=== PATIENT | male | born 1975 | race Two or more races ===

== ENCOUNTER 2020-09-23 13:15 | Inpatient (IN) | payer OTHER ==
[2020-09-23 14:43] VITALS: BMI 28.8
[2020-09-23] MEDS ORDERED: P-EPHED 60MG/TRIPROLIDI 2.5MG TABLET PO PRN (20:33)
[2020-09-23] MEDS ORDERED: guaiFENesin 200 MG/10 ML 10 ML UNIT-DOSE CUPS PO PRN (20:33)
[2020-09-23] MEDS ORDERED: LOPERAMIDE HCL 2 MG CAPSULE PO PRN (20:33)
[2020-09-23] MEDS ORDERED: MAGNESIUM CITRATE 300 ML BOTTLE PO PRN (20:33)
[2020-09-23] MEDS ORDERED: ACETAMINOPHEN 325 MG TABLET (FP) PO PRN (20:33)
[2020-09-23] MEDS ORDERED: MAGNESIUM HYDROX 2400MG/30ML ORAL SUSPENSION 30 ML CUP PO PRN (20:33)
[2020-09-23] MEDS ORDERED: MAG HYDROX/AL HYDROX/SIMETH 30 ML UNIT-DOSE CUP PO PRN (20:33)
[2020-09-23] MEDS: MELATONIN 5 MG TABLETS PO SCH (22:03)
[2020-09-23] MEDS: THIAMINE HCL 100 MG TABLET (FP) PO SCH (22:03)
[2020-09-23] MEDS ORDERED: TUBERCULIN PPD 5 TU/0.1ML VIAL ID ONE (22:05)
[2020-09-24] MEDS ORDERED: METHADONE HCL 40 MG DISPERSABLE TABLET ONE (07:54)
[2020-09-24] MEDS ORDERED: METHADONE HCL 10 MG TABLET ONE (07:54)
[2020-09-24] MEDS ORDERED: METHADONE 120 MG, METHADONE 10 MG PO ONE (08:00)
[2020-09-24] MEDS ORDERED: METHADONE HCL 10 MG TABLET PO ONE ×2 (10:00)
[2020-09-24] MEDS: PRENATAL VITAMINS W/ FOLIC ACID TABLET (FP) PO SCH (11:10)
[2020-09-24] MEDS: SERTRALINE HCL 50 MG TABLET (FP) PO SCH (12:01)
[2020-09-24] MEDS: NICOTINE POLACRILEX 2 MG GUM BC PRN (12:02)
[2020-09-24] MEDS ORDERED: MASKS NR ONE ×2 (16:25→17:15)
[2020-09-24 16:29] LABS: HEMATOCRIT 41.9 % (35.4-49); MCH 27.1 pg (25.7-33.7); MCHC 33.3 g/dl (32.0-35.9); MEAN CELL VOLUME 81.3 fl (80-96); MEAN PLT VOLUME 10.3 fl (7.5-11.1); PLATELET COUNT 181 K/MM3 (134-434); RBC 5.15 M/mm3 (4.00-5.60); RDW 15.3 % (11.9-15.9); WHITE BLOOD COUNT 6.4 K/mm3 (4.0-10.0)
[2020-09-24 16:40] LABS: ALBUMIN 4.3 g/dl (3.4-5.0); BLOOD UREA NITROGEN 18.2 mg/dL (7-18); CALCIUM 9.5 mg/dL (8.5-10.1)
[2020-09-24 16:45] LABS: BILIRUBIN,TOTAL 0.4 mg/dL (0.2-1); TOT PROT 7.7 g/dl (6.4-8.2)
[2020-09-24] MEDS: THIAMINE HCL 100 MG TABLET (FP) PO SCH (21:06)
[2020-09-24] MEDS: MELATONIN 5 MG TABLETS PO SCH (21:06)
[2020-09-25] MEDS ORDERED: METHADONE HCL 10 MG TABLET PO SCH ×2 (06:00)
[2020-09-25] MEDS ORDERED: METHADONE HCL 10 MG TABLET ONE (06:06)
[2020-09-25] MEDS ORDERED: METHADONE HCL 40 MG DISPERSABLE TABLET ONE (06:06)
[2020-09-25] MEDS: METHADONE 120 MG, METHADONE 10 MG PO SCH (06:07)
[2020-09-25] MEDS: PRENATAL VITAMINS W/ FOLIC ACID TABLET (FP) PO SCH (10:22)
[2020-09-25] MEDS: SERTRALINE HCL 50 MG TABLET (FP) PO SCH (10:24)
[2020-09-25] MEDS: NICOTINE POLACRILEX 2 MG GUM BC PRN (10:24)
[2020-09-25] MEDS: ARIPiprazole 10 MG TABLET PO SCH (10:24)
[2020-09-25 11:28] LABS: URINE APPEARANCE CLEAR; URINE BILIRUBIN NEGATIVE (NEGATIVE); URINE COLOR YELLOW; URINE GLUCOSE (UA) NEGATIVE (NEGATIVE); URINE KETONE NEGATIVE (NEGATIVE); URINE LEUK ESTERASE NEGATIVE (NEGATIVE); URINE NITRITE NEGATIVE (NEGATIVE); URINE PROTEIN NEGATIVE (NEGATIVE)
[2020-09-25] MEDS: MELATONIN 5 MG TABLETS PO SCH (21:38)
[2020-09-25] MEDS: THIAMINE HCL 100 MG TABLET (FP) PO SCH (21:40)
[2020-09-26] MEDS: IBUPROFEN 400 MG TABLET (FP) PO PRN (02:57)
[2020-09-26] MEDS ORDERED: METHADONE HCL 40 MG DISPERSABLE TABLET ONE (04:31)
[2020-09-26] MEDS ORDERED: METHADONE HCL 10 MG TABLET ONE (04:31)
[2020-09-26] MEDS: METHADONE 120 MG, METHADONE 10 MG PO SCH (06:04)
[2020-09-26] MEDS: SERTRALINE HCL 50 MG TABLET (FP) PO SCH (10:30)
[2020-09-26] MEDS: PRENATAL VITAMINS W/ FOLIC ACID TABLET (FP) PO SCH (10:30)
[2020-09-26] MEDS: ARIPiprazole 10 MG TABLET PO SCH (10:31)
[2020-09-26] MEDS: THIAMINE HCL 100 MG TABLET (FP) PO SCH (21:14)
[2020-09-26] MEDS: MELATONIN 5 MG TABLETS PO SCH (21:14)
[2020-09-27] MEDS ORDERED: METHADONE HCL 40 MG DISPERSABLE TABLET ONE (04:14)
[2020-09-27] MEDS ORDERED: METHADONE HCL 10 MG TABLET ONE (04:14)
[2020-09-27] MEDS: METHADONE 120 MG, METHADONE 10 MG PO SCH (06:15)
[2020-09-27] MEDS: SERTRALINE HCL 50 MG TABLET (FP) PO SCH (10:04)
[2020-09-27] MEDS: ARIPiprazole 10 MG TABLET PO SCH (10:04)
[2020-09-27] MEDS: PRENATAL VITAMINS W/ FOLIC ACID TABLET (FP) PO SCH (10:05)
[2020-09-27 11:07] LABS: SARS-CoV-2 NAA Not Detected (Not Detected)
[2020-09-27] MEDS ORDERED: MASKS NR ONE (16:22)
[2020-09-27] MEDS: MELATONIN 5 MG TABLETS PO SCH (21:38)
[2020-09-27] MEDS: THIAMINE HCL 100 MG TABLET (FP) PO SCH (21:38)
[2020-09-28] MEDS ORDERED: METHADONE HCL 40 MG DISPERSABLE TABLET ONE (03:11)
[2020-09-28] MEDS ORDERED: METHADONE HCL 10 MG TABLET ONE (03:11)
[2020-09-28] MEDS: METHADONE 120 MG, METHADONE 10 MG PO SCH (06:16)
[2020-09-28] MEDS: PRENATAL VITAMINS W/ FOLIC ACID TABLET (FP) PO SCH (10:23)
[2020-09-28] MEDS: ARIPiprazole 10 MG TABLET PO SCH (10:23)
[2020-09-28] MEDS: SERTRALINE HCL 50 MG TABLET (FP) PO SCH (10:23)
[2020-09-28] MEDS: MELATONIN 5 MG TABLETS PO SCH (21:08)
[2020-09-28] MEDS: THIAMINE HCL 100 MG TABLET (FP) PO SCH (21:08)
[2020-09-29] MEDS ORDERED: METHADONE HCL 10 MG TABLET ONE (03:24)
[2020-09-29] MEDS ORDERED: METHADONE HCL 40 MG DISPERSABLE TABLET ONE (03:24)
[2020-09-29] MEDS: IBUPROFEN 400 MG TABLET (FP) PO PRN ×2 (03:25→16:43)
[2020-09-29] MEDS: METHADONE 120 MG, METHADONE 10 MG PO SCH (05:51)
[2020-09-29] MEDS: SERTRALINE HCL 50 MG TABLET (FP) PO SCH (09:38)
[2020-09-29] MEDS: PRENATAL VITAMINS W/ FOLIC ACID TABLET (FP) PO SCH (09:38)
[2020-09-29] MEDS: ARIPiprazole 10 MG TABLET PO SCH (09:38)
[2020-09-29] MEDS ORDERED: MASKS NR ONE (11:46)
[2020-09-29] MEDS: THIAMINE HCL 100 MG TABLET (FP) PO SCH (21:25)
[2020-09-29] MEDS: MELATONIN 5 MG TABLETS PO SCH (21:25)
[2020-09-30] MEDS: IBUPROFEN 400 MG TABLET (FP) PO PRN (02:00)
[2020-09-30] MEDS ORDERED: METHADONE HCL 10 MG TABLET ONE (03:16)
[2020-09-30] MEDS ORDERED: METHADONE HCL 40 MG DISPERSABLE TABLET ONE (03:16)
[2020-09-30] MEDS: METHADONE 120 MG, METHADONE 10 MG PO SCH (06:06)
[2020-09-30] MEDS: PRENATAL VITAMINS W/ FOLIC ACID TABLET (FP) PO SCH (10:22)
[2020-09-30] MEDS: SERTRALINE HCL 50 MG TABLET (FP) PO SCH (10:22)
[2020-09-30] MEDS: ARIPiprazole 10 MG TABLET PO SCH (10:22)
[2020-09-30] MEDS: MELATONIN 5 MG TABLETS PO SCH (21:21)
[2020-09-30] MEDS: THIAMINE HCL 100 MG TABLET (FP) PO SCH (21:21)
[2020-10-01] MEDS: LIDOCAINE VISCOUS 2% ORAL/TOP 20 ML UNIT-DOSE CUP MM PRN (01:25)
[2020-10-01] MEDS ORDERED: METHADONE HCL 10 MG TABLET ONE (03:19)
[2020-10-01] MEDS ORDERED: METHADONE HCL 40 MG DISPERSABLE TABLET ONE (03:19)
[2020-10-01] MEDS: METHADONE 120 MG, METHADONE 10 MG PO SCH (05:33)
[2020-10-01] MEDS: PRENATAL VITAMINS W/ FOLIC ACID TABLET (FP) PO SCH (10:31)
[2020-10-01] MEDS: SERTRALINE HCL 50 MG TABLET (FP) PO SCH (10:31)
[2020-10-01] MEDS: ARIPiprazole 10 MG TABLET PO SCH (10:31)
[2020-10-01] MEDS: NICOTINE POLACRILEX 2 MG GUM BC PRN (18:06)
[2020-10-01] MEDS: THIAMINE HCL 100 MG TABLET (FP) PO SCH (21:24)
[2020-10-01] MEDS: MELATONIN 5 MG TABLETS PO SCH (21:24)
[2020-10-02] MEDS ORDERED: METHADONE HCL 10 MG TABLET ONE (04:05)
[2020-10-02] MEDS ORDERED: METHADONE HCL 40 MG DISPERSABLE TABLET ONE (04:05)
[2020-10-02] MEDS: METHADONE 120 MG, METHADONE 10 MG PO SCH (05:47)
[2020-10-02] MEDS: ARIPiprazole 10 MG TABLET PO SCH (09:44)
[2020-10-02] MEDS: PRENATAL VITAMINS W/ FOLIC ACID TABLET (FP) PO SCH (09:44)
[2020-10-02] MEDS: SERTRALINE HCL 50 MG TABLET (FP) PO SCH (09:44)
[2020-10-02] MEDS: LIDOCAINE VISCOUS 2% ORAL/TOP 20 ML UNIT-DOSE CUP MM PRN (09:46)
[2020-10-02] MEDS: THIAMINE HCL 100 MG TABLET (FP) PO SCH (21:04)
[2020-10-02] MEDS: MELATONIN 5 MG TABLETS PO SCH (21:04)
[2020-10-03] MEDS ORDERED: METHADONE HCL 40 MG DISPERSABLE TABLET ONE (03:17)
[2020-10-03] MEDS ORDERED: METHADONE HCL 10 MG TABLET ONE (03:17)
[2020-10-03] MEDS: METHADONE 120 MG, METHADONE 10 MG PO SCH (05:57)
[2020-10-03] MEDS: PRENATAL VITAMINS W/ FOLIC ACID TABLET (FP) PO SCH (09:48)
[2020-10-03] MEDS: SERTRALINE HCL 50 MG TABLET (FP) PO SCH (09:48)
[2020-10-03] MEDS: ARIPiprazole 10 MG TABLET PO SCH (09:48)
[2020-10-03] MEDS: THIAMINE HCL 100 MG TABLET (FP) PO SCH (22:19)
[2020-10-03] MEDS: MELATONIN 5 MG TABLETS PO SCH (22:19)
[2020-10-04] MEDS ORDERED: METHADONE HCL 10 MG TABLET ONE (03:20)
[2020-10-04] MEDS ORDERED: METHADONE HCL 40 MG DISPERSABLE TABLET ONE (03:20)
[2020-10-04] MEDS: METHADONE 120 MG, METHADONE 10 MG PO SCH (05:56)
[2020-10-04] MEDS: ARIPiprazole 10 MG TABLET PO SCH (10:24)
[2020-10-04] MEDS: SERTRALINE HCL 50 MG TABLET (FP) PO SCH (10:24)
[2020-10-04] MEDS: PRENATAL VITAMINS W/ FOLIC ACID TABLET (FP) PO SCH (10:24)
[2020-10-04] MEDS: THIAMINE HCL 100 MG TABLET (FP) PO SCH (21:02)
[2020-10-04] MEDS: MELATONIN 5 MG TABLETS PO SCH (21:02)
[2020-10-05] MEDS ORDERED: METHADONE HCL 40 MG DISPERSABLE TABLET ONE (03:10)
[2020-10-05] MEDS ORDERED: METHADONE HCL 10 MG TABLET ONE (03:10)
[2020-10-05] MEDS: METHADONE 120 MG, METHADONE 10 MG PO SCH (05:57)
[2020-10-05] MEDS: ARIPiprazole 10 MG TABLET PO SCH (10:32)
[2020-10-05] MEDS: PRENATAL VITAMINS W/ FOLIC ACID TABLET (FP) PO SCH (10:32)
[2020-10-05] MEDS: SERTRALINE HCL 50 MG TABLET (FP) PO SCH (10:32)
[2020-10-05] MEDS: THIAMINE HCL 100 MG TABLET (FP) PO SCH (21:58)
[2020-10-05] MEDS: MELATONIN 5 MG TABLETS PO SCH (21:58)
[2020-10-06] MEDS ORDERED: METHADONE HCL 40 MG DISPERSABLE TABLET ONE (03:15)
[2020-10-06] MEDS ORDERED: METHADONE HCL 10 MG TABLET ONE (03:15)
[2020-10-06] MEDS: METHADONE 120 MG, METHADONE 10 MG PO SCH (05:51)
[2020-10-06] MEDS: SERTRALINE HCL 50 MG TABLET (FP) PO SCH (09:41)
[2020-10-06] MEDS: ARIPiprazole 10 MG TABLET PO SCH (09:41)
[2020-10-06] MEDS: PRENATAL VITAMINS W/ FOLIC ACID TABLET (FP) PO SCH (09:41)
[2020-10-06] MEDS: MELATONIN 5 MG TABLETS PO SCH (21:25)
[2020-10-06] MEDS: THIAMINE HCL 100 MG TABLET (FP) PO SCH (21:25)
[2020-10-07] MEDS ORDERED: METHADONE HCL 10 MG TABLET ONE (03:14)
[2020-10-07] MEDS ORDERED: METHADONE HCL 40 MG DISPERSABLE TABLET ONE (03:14)
[2020-10-07] MEDS: METHADONE 120 MG, METHADONE 10 MG PO SCH (06:02)
[2020-10-07] MEDS: ARIPiprazole 10 MG TABLET PO SCH (10:05)
[2020-10-07] MEDS: PRENATAL VITAMINS W/ FOLIC ACID TABLET (FP) PO SCH (10:05)
[2020-10-07] MEDS: SERTRALINE HCL 50 MG TABLET (FP) PO SCH (10:05)
[2020-10-07] MEDS: NICOTINE POLACRILEX 2 MG GUM BC PRN (19:52)
[2020-10-07] MEDS: MELATONIN 5 MG TABLETS PO SCH (21:02)
[2020-10-07] MEDS: THIAMINE HCL 100 MG TABLET (FP) PO SCH (21:02)
[2020-10-08] MEDS: LIDOCAINE VISCOUS 2% ORAL/TOP 20 ML UNIT-DOSE CUP MM PRN (00:05)
[2020-10-08] MEDS ORDERED: METHADONE HCL 40 MG DISPERSABLE TABLET ONE (03:10)
[2020-10-08] MEDS ORDERED: METHADONE HCL 10 MG TABLET ONE (03:10)
[2020-10-08] MEDS: METHADONE 120 MG, METHADONE 10 MG PO SCH (06:00)
[2020-10-08 07:34] VITALS: BP 125/77; PULSE 59; TEMP 97.8
[2020-10-08] MEDS: PRENATAL VITAMINS W/ FOLIC ACID TABLET (FP) PO SCH (09:10)
[2020-10-08] MEDS: ARIPiprazole 10 MG TABLET PO SCH (09:10)
[2020-10-08] MEDS: SERTRALINE HCL 50 MG TABLET (FP) PO SCH (09:10)
[2020-10-08] MEDS: NICOTINE POLACRILEX 2 MG GUM BC PRN (09:15)
== END 2020-10-08 09:45 | disposition home or self-care (01) | DRG 772 ==
LOC: YASAS 13:15 → Y3W 21:15
PROVIDERS: ADMIT Allergy & Immunology; ATTEND Allergy & Immunology
PROC: HZ42ZZZ Group Counseling for Substance Abuse Treatment, Cognitive-Behavioral (ICD-10-PCS; principal; 2020-09-23)
DX: F10.20 Alcohol dependence, uncomplicated (principal); F11.20 Opioid dependence, uncomplicated; F14.20 Cocaine dependence, uncomplicated; F17.210 Nicotine dependence, cigarettes, uncomplicated; F31.89 Other bipolar disorder; F41.9 Anxiety disorder, unspecified; G40.909 Epilepsy, unspecified, not intractable, without status epilepticus; J45.909 Unspecified asthma, uncomplicated; B18.2 Chronic viral hepatitis C; K08.89 Other specified disorders of teeth and supporting structures; Z91.5 Personal history of self-harm
CPT/HCPCS: 36415; 80053; 81003; 85027; 86780; C9803; U0003; U0005

== ENCOUNTER 2022-06-16 12:01 | Inpatient (IN) | payer OTHER ==
[2022-06-16 14:30] VITALS: BMI 25.1
[2022-06-16] MEDS ORDERED: BISMUTH SUBSALICYLATE 524 MG/30 ML PO PRN (16:25)
[2022-06-16] MEDS ORDERED: ACETAMINOPHEN 325 MG TABLET (FP) PO PRN ×2 (16:25)
[2022-06-16] MEDS ORDERED: IBUPROFEN 600 MG TABLET (FP) PO PRN (16:25)
[2022-06-16] MEDS ORDERED: NALOXONE HCL (KLOXXADO) 8 MG SPRAY NS PRN (16:25)
[2022-06-16] MEDS ORDERED: BENZOCAINE/MENTHOL (CHLORASEPTIC ) LOZENGE MM PRN (16:25)
[2022-06-16] MEDS ORDERED: MAGNESIUM HYDROX 2400MG/30ML ORAL SUSPENSION 30 ML CUP PO PRN (16:25)
[2022-06-16] MEDS ORDERED: IBUPROFEN 400 MG TABLET (FP) PO PRN (16:25)
[2022-06-16] MEDS ORDERED: NICOTINE 10 MG CARTRIDGE (INHALER) IH PRN (16:25)
[2022-06-16] MEDS ORDERED: hydrOXYzine PAMOATE 25 MG CAPSULE (FP) PO PRN (16:25)
[2022-06-16] MEDS ORDERED: POLYETHYLENE GLYCOL (HEALTHYLAX) 3350 17 GM PACKET PO PRN (16:25)
[2022-06-16] MEDS ORDERED: DICYCLOMINE HCL 10 MG CAPSULE PO PRN (16:25)
[2022-06-16] MEDS ORDERED: MAG HYDROX/AL HYDROX/SIMETH 30 ML UNIT-DOSE CUP PO PRN (16:25)
[2022-06-16] MEDS ORDERED: METHOCARBAMOL 500 MG TABLET PO PRN (16:25)
[2022-06-16] MEDS ORDERED: ONDANSETRON *ODT* 4 MG TABLET SL PRN (16:25)
[2022-06-16] MEDS ORDERED: LOPERAMIDE HCL 2 MG CAPSULE PO PRN (16:25)
[2022-06-16] MEDS: THIAMINE HCL 100 MG TABLET (FP) PO SCH (22:56)
[2022-06-16] MEDS: MELATONIN 5 MG TABLETS PO SCH (22:56)
[2022-06-17] MEDS ORDERED: cloNIDine HCL 0.1 MG TABLET PO PRN (10:02)
[2022-06-17] MEDS ORDERED: methaDONE HCL 10 MG TABLET (FOR DETOX USE ONLY) PO ONE (10:15)
[2022-06-17] MEDS: PRENATAL VITAMINS W/ FOLIC ACID TABLET (FP) PO SCH (10:17)
[2022-06-17 11:34] LABS: HEMATOCRIT 32.7 % (35.4-49); HEMOGLOBIN 10.9 GM/dL (11.7-16.9); MCH 25.7 pg (25.7-33.7); MCHC 33.4 g/dl (32.0-35.9); MEAN PLT VOLUME 9.3 fl (7.5-11.1); PLATELET COUNT 166 10^3/uL (134-434); RBC 4.25 M/mm3 (4.00-5.60); RDW 15.4 % (11.9-15.9); WHITE BLOOD COUNT 4.8 K/mm3 (4.0-10.0)
[2022-06-17 13:06] LABS: ALBUMIN 2.8 g/dl (3.4-5.0)
[2022-06-17 13:07] LABS: BILIRUBIN,TOTAL 0.4 mg/dL (0.2-1)
[2022-06-17 13:08] LABS: BLOOD UREA NITROGEN 10.6 mg/dL (7-18); TOT PROT 5.8 g/dl (6.4-8.2)
[2022-06-17 13:09] LABS: CALCIUM 8.5 mg/dL (8.5-10.1); CREATININE 0.7 mg/dL (0.55-1.3)
[2022-06-17] MEDS: MELATONIN 5 MG TABLETS PO SCH (23:03)
[2022-06-17] MEDS: THIAMINE HCL 100 MG TABLET (FP) PO SCH (23:04)
[2022-06-18] MEDS: SERTRALINE HCL 50 MG TABLET (FP) PO SCH (10:36)
[2022-06-18] MEDS: ARIPiprazole 5 MG TABLET PO SCH (10:36)
[2022-06-18] MEDS: PRENATAL VITAMINS W/ FOLIC ACID TABLET (FP) PO SCH (10:36)
[2022-06-18 22:01] VITALS: RESP 18
[2022-06-18] MEDS: THIAMINE HCL 100 MG TABLET (FP) PO SCH (22:54)
[2022-06-18] MEDS: MELATONIN 5 MG TABLETS PO SCH ×2 (22:54→23:18)
[2022-06-19] MEDS: ARIPiprazole 5 MG TABLET PO SCH (09:59)
[2022-06-19] MEDS: SERTRALINE HCL 50 MG TABLET (FP) PO SCH (09:59)
[2022-06-19] MEDS: PRENATAL VITAMINS W/ FOLIC ACID TABLET (FP) PO SCH (09:59)
[2022-06-19] MEDS ORDERED: methaDONE HCL 10 MG TABLET (FOR DETOX USE ONLY) PO ONE (10:00)
[2022-06-19 13:25] VITALS: BP 134/66; PULSE 69; TEMP 98.2
[2022-06-21] MEDS ORDERED: methaDONE HCL 10 MG TABLET (FOR DETOX USE ONLY) PO ONE (10:00)
== END 2022-06-19 13:55 | disposition left against medical advice (07) | DRG 770 ==
LOC: YASAS 12:01 → Y3N 17:11
PROVIDERS: ADMIT Allergy & Immunology; ATTEND Surgery
PROC: HZ2ZZZZ Detoxification Services for Substance Abuse Treatment (ICD-10-PCS; principal; 2022-06-16)
DX: F11.23 Opioid dependence with withdrawal (principal); F14.20 Cocaine dependence, uncomplicated; F17.210 Nicotine dependence, cigarettes, uncomplicated; F31.9 Bipolar disorder, unspecified; F19.24 Other psychoactive substance dependence with psychoactive substance-induced mood disorder; Z86.19 Personal history of other infectious and parasitic diseases; Z56.0 Unemployment, unspecified; Z59.00 Homelessness unspecified
CPT/HCPCS: 36415; 80053; 85027; 86780; 87811; 93005; 93010; C9803-CS; U0003; U0005

== ENCOUNTER 2022-06-19 15:23 | Emergency (ER) | payer OTHER ==
[2022-06-19 15:42] VITALS: BP 111/64; PULSE 86; RESP 18; TEMP 98.8; BMI 24.7
[2022-06-19 17:42] LABS: BASO % 0.3 % (0-2.0); EOS % 0.2 % (0-4.5); HEMATOCRIT 38.5 % (35.4-49); HEMOGLOBIN 13.1 GM/dL (11.7-16.9); LYMPH % 18.3 % (8-40); MCH 26.2 pg (25.7-33.7); MEAN CELL VOLUME 76.9 fl (80-96); MEAN PLT VOLUME 8.1 fl (7.5-11.1); MONO % 3.4 % (3.8-10.2); NEUT % 77.8 % (42.8-82.8); PLATELET COUNT 259 10^3/uL (134-434); WHITE BLOOD COUNT 8.5 K/mm3 (4.0-10.0)
[2022-06-19 18:03] LABS: CALCIUM 9.2 mg/dL (8.5-10.1)
[2022-06-19 18:04] LABS: BLOOD UREA NITROGEN 11.5 mg/dL (7-18)
[2022-06-19 18:06] LABS: CREATININE 1.2 mg/dL (0.55-1.3)
[2022-06-19 18:07] LABS: PHOSPHOROUS 4.4 mg/dL (2.5-4.9)
[2022-06-19 18:08] LABS: BILIRUBIN,TOTAL 0.3 mg/dL (0.2-1); TOT PROT 7.5 g/dl (6.4-8.2)
[2022-06-19 18:25] LABS: ALBUMIN 3.6 g/dl (3.4-5.0)
== END 2022-06-19 18:49 | disposition home or self-care (01) ==
LOC: JER 15:23
DX: R55 Syncope and collapse (principal)
CPT/HCPCS: 0241U-QW; 36415; 70450-TC; 71046-TC-FY; 72125-TC; 80053; 83735; 84100; 84484; 85025; 93005; 93010; 99285-25

== ENCOUNTER 2022-06-19 19:24 | Inpatient (IN) | payer OTHER ==
[2022-06-19 19:51] VITALS: BMI 24.7
[2022-06-19] MEDS ORDERED: MAG HYDROX/AL HYDROX/SIMETH 30 ML UNIT-DOSE CUP PO PRN (22:56)
[2022-06-19] MEDS ORDERED: IBUPROFEN 600 MG TABLET (FP) PO PRN (22:56)
[2022-06-19] MEDS ORDERED: MAGNESIUM HYDROX 2400MG/30ML ORAL SUSPENSION 30 ML CUP PO PRN (22:56)
[2022-06-19] MEDS ORDERED: ACETAMINOPHEN 325 MG TABLET (FP) PO PRN ×2 (22:56)
[2022-06-19] MEDS ORDERED: DICYCLOMINE HCL 10 MG CAPSULE PO PRN (22:56)
[2022-06-19] MEDS ORDERED: POLYETHYLENE GLYCOL (HEALTHYLAX) 3350 17 GM PACKET PO PRN (22:56)
[2022-06-19] MEDS ORDERED: IBUPROFEN 400 MG TABLET (FP) PO PRN (22:56)
[2022-06-19] MEDS ORDERED: NALOXONE HCL (KLOXXADO) 8 MG SPRAY NS PRN (22:56)
[2022-06-19] MEDS ORDERED: BENZOCAINE/MENTHOL (CHLORASEPTIC ) LOZENGE MM PRN (22:56)
[2022-06-19] MEDS ORDERED: ONDANSETRON *ODT* 4 MG TABLET SL PRN (22:56)
[2022-06-19] MEDS ORDERED: LOPERAMIDE HCL 2 MG CAPSULE PO PRN (22:56)
[2022-06-20] MEDS ORDERED: methaDONE HCL 10 MG TABLET (FOR DETOX USE ONLY) PO ONE (10:00)
[2022-06-20] MEDS: PRENATAL VITAMINS W/ FOLIC ACID TABLET (FP) PO SCH (10:19)
[2022-06-20] MEDS: NICOTINE 14 MG/24 HOURS TOPICAL PATCH TD SCH (10:20)
[2022-06-20] MEDS: diazePAM 5 MG TABLET PO PRN ×2 (10:22→23:37)
[2022-06-20] MEDS: NICOTINE 10 MG CARTRIDGE (INHALER) IH PRN (11:15)
[2022-06-20 12:18] LABS: HEMATOCRIT 36.7 % (35.4-49); HEMOGLOBIN 12.2 GM/dL (11.7-16.9); MCH 25.6 pg (25.7-33.7); MCHC 33.3 g/dl (32.0-35.9); MEAN CELL VOLUME 77.1 fl (80-96); MEAN PLT VOLUME 8.9 fl (7.5-11.1); PLATELET COUNT 221 10^3/uL (134-434); RBC 4.76 M/mm3 (4.00-5.60); RDW 15.2 % (11.9-15.9); WHITE BLOOD COUNT 5.7 K/mm3 (4.0-10.0)
[2022-06-20 12:28] LABS: ALBUMIN 3.1 g/dl (3.4-5.0); BLOOD UREA NITROGEN 17.9 mg/dL (7-18); CALCIUM 8.7 mg/dL (8.5-10.1)
[2022-06-20 12:32] LABS: TOT PROT 6.4 g/dl (6.4-8.2)
[2022-06-20 12:33] LABS: BILIRUBIN,TOTAL 0.3 mg/dL (0.2-1)
[2022-06-20] MEDS: THIAMINE HCL 100 MG TABLET (FP) PO SCH (23:38)
[2022-06-20] MEDS: MELATONIN 5 MG TABLETS PO SCH (23:38)
[2022-06-21] MEDS ORDERED: ARIPiprazole 5 MG TABLET PO SCH (10:00)
[2022-06-21] MEDS ORDERED: SERTRALINE HCL 50 MG TABLET (FP) PO SCH ×2 (10:00)
[2022-06-21] MEDS ORDERED: ARIPiprazole 10 MG TABLET PO SCH (10:00)
[2022-06-21] MEDS: PRENATAL VITAMINS W/ FOLIC ACID TABLET (FP) PO SCH (10:10)
[2022-06-21] MEDS: NICOTINE 14 MG/24 HOURS TOPICAL PATCH TD SCH (10:10)
[2022-06-21] MEDS: cloNIDine HCL 0.1 MG TABLET PO PRN (17:32)
[2022-06-21] MEDS: NICOTINE 10 MG CARTRIDGE (INHALER) IH PRN (18:02)
[2022-06-21] MEDS: METHOCARBAMOL 500 MG TABLET PO PRN (19:00)
[2022-06-21] MEDS: MELATONIN 5 MG TABLETS PO SCH (22:32)
[2022-06-21] MEDS: THIAMINE HCL 100 MG TABLET (FP) PO SCH (22:32)
[2022-06-22] MEDS: cloNIDine HCL 0.1 MG TABLET PO PRN ×3 (05:11→22:19)
[2022-06-22] MEDS ORDERED: methaDONE HCL 10 MG TABLET (FOR DETOX USE ONLY) PO ONE (10:00)
[2022-06-22] MEDS: PRENATAL VITAMINS W/ FOLIC ACID TABLET (FP) PO SCH (10:04)
[2022-06-22] MEDS: BISMUTH SUBSALICYLATE 524 MG/30 ML PO PRN ×2 (10:06→17:32)
[2022-06-22] MEDS: NICOTINE 14 MG/24 HOURS TOPICAL PATCH TD SCH (10:06)
[2022-06-22] MEDS: METHOCARBAMOL 500 MG TABLET PO PRN ×2 (10:34→17:32)
[2022-06-22] MEDS: hydrOXYzine PAMOATE 25 MG CAPSULE (FP) PO PRN ×2 (14:55→22:19)
[2022-06-22] MEDS: NICOTINE 10 MG CARTRIDGE (INHALER) IH PRN (15:35)
[2022-06-22] MEDS: MELATONIN 5 MG TABLETS PO SCH (22:19)
[2022-06-22] MEDS: THIAMINE HCL 100 MG TABLET (FP) PO SCH (22:19)
[2022-06-23] MEDS: hydrOXYzine PAMOATE 25 MG CAPSULE (FP) PO PRN ×3 (06:30→21:00)
[2022-06-23] MEDS: METHOCARBAMOL 500 MG TABLET PO PRN ×2 (09:59→17:30)
[2022-06-23] MEDS: PRENATAL VITAMINS W/ FOLIC ACID TABLET (FP) PO SCH (09:59)
[2022-06-23] MEDS: NICOTINE 14 MG/24 HOURS TOPICAL PATCH TD SCH (10:01)
[2022-06-23] MEDS: MELATONIN 5 MG TABLETS PO SCH (21:00)
[2022-06-23] MEDS: THIAMINE HCL 100 MG TABLET (FP) PO SCH (21:00)
[2022-06-24 09:52] VITALS: RESP 18
[2022-06-24] MEDS ORDERED: methaDONE HCL 10 MG TABLET (FOR DETOX USE ONLY) PO ONE (10:00)
[2022-06-24] MEDS: PRENATAL VITAMINS W/ FOLIC ACID TABLET (FP) PO SCH (10:19)
[2022-06-24] MEDS: NICOTINE 14 MG/24 HOURS TOPICAL PATCH TD SCH (10:20)
[2022-06-24] MEDS: BISMUTH SUBSALICYLATE 524 MG/30 ML PO PRN (10:22)
[2022-06-24] MEDS: hydrOXYzine PAMOATE 25 MG CAPSULE (FP) PO PRN (12:59)
[2022-06-24] MEDS: METHOCARBAMOL 500 MG TABLET PO PRN (13:00)
[2022-06-24 13:08] VITALS: BP 125/75; PULSE 91; TEMP 97.7
== END 2022-06-24 14:31 | disposition other institution (70) | DRG 773 ==
LOC: YASAS 19:24 → Y3N 23:26
PROVIDERS: ADMIT Allergy & Immunology; ATTEND Surgery
PROC: HZ2ZZZZ Detoxification Services for Substance Abuse Treatment (ICD-10-PCS; principal; 2022-06-19)
DX: F11.23 Opioid dependence with withdrawal (principal); F14.20 Cocaine dependence, uncomplicated; F17.210 Nicotine dependence, cigarettes, uncomplicated; F31.9 Bipolar disorder, unspecified; F19.24 Other psychoactive substance dependence with psychoactive substance-induced mood disorder; F41.9 Anxiety disorder, unspecified; F60.2 Antisocial personality disorder; M25.561 Pain in right knee; W19.XXXA Unspecified fall, initial encounter; Y92.230 Patient room in hospital as the place of occurrence of the external cause; Z86.19 Personal history of other infectious and parasitic diseases; Z86.69 Personal history of other diseases of the nervous system and sense organs; Z59.00 Homelessness unspecified
CPT/HCPCS: 0241U-QW; 36415; 70450-TC; 71046-TC-FY; 72125-TC; 80053; 83036; 83735; 84100; 84484; 85025; 85027; 86780; 87811; 93005; 93010; C9803-CS; Q0162; U0003; U0005

== ENCOUNTER 2022-06-20 17:24 | Emergency (ER) | payer OTHER ==
[2022-06-20 18:11] VITALS: BP 114/79; PULSE 81; RESP 16; TEMP 98.1; BMI 24.7
[2022-06-20 19:42] LABS: EOS % 1.2 % (0-4.5); HEMATOCRIT 38.9 % (35.4-49); HEMOGLOBIN 12.8 GM/dL (11.7-16.9); LYMPH % 35.7 % (8-40); MCH 25.1 pg (25.7-33.7); MCHC 32.9 g/dl (32.0-35.9); MEAN CELL VOLUME 76.4 fl (80-96); MEAN PLT VOLUME 8.2 fl (7.5-11.1); MONO % 6.6 % (3.8-10.2); NEUT % 55.5 % (42.8-82.8); PLATELET COUNT 286 10^3/uL (134-434); RBC 5.09 M/mm3 (4.00-5.60); RDW 15.4 % (11.9-15.9); WHITE BLOOD COUNT 7.6 K/mm3 (4.0-10.0)
[2022-06-20 20:01] LABS: ALBUMIN 3.5 g/dl (3.4-5.0); BLOOD UREA NITROGEN 17.9 mg/dL (7-18)
[2022-06-20 20:04] LABS: CREATININE 0.9 mg/dL (0.55-1.3)
[2022-06-20 20:06] LABS: BILIRUBIN,TOTAL 0.2 mg/dL (0.2-1); TOT PROT 7.2 g/dl (6.4-8.2)
== END 2022-06-20 21:17 | disposition home or self-care (01) ==
LOC: JERFT 17:24 → JER 17:24 → JERFT 21:17
DX: M25.561 Pain in right knee (principal); R55 Syncope and collapse
CPT/HCPCS: 36415; 70450-TC; 72125-TC; 73562-TC-RT-FY; 80053; 84484; 85025; 93005; 93010; 99285-25

== ENCOUNTER 2022-09-09 12:58 | Inpatient (IN) | payer OTHER ==
[2022-09-09 15:23] VITALS: BMI 26.0
[2022-09-09] MEDS ORDERED: MAGNESIUM HYDROX 2400MG/30ML ORAL SUSPENSION 30 ML CUP PO PRN (16:11)
[2022-09-09] MEDS ORDERED: METHOCARBAMOL 500 MG TABLET PO PRN (16:11)
[2022-09-09] MEDS ORDERED: IBUPROFEN 400 MG TABLET (FP) PO PRN (16:11)
[2022-09-09] MEDS ORDERED: DICYCLOMINE HCL 10 MG CAPSULE PO PRN (16:11)
[2022-09-09] MEDS ORDERED: IBUPROFEN 600 MG TABLET (FP) PO PRN (16:11)
[2022-09-09] MEDS ORDERED: POLYETHYLENE GLYCOL (HEALTHYLAX) 3350 17 GM PACKET PO PRN (16:11)
[2022-09-09] MEDS ORDERED: NALOXONE HCL (KLOXXADO) 8 MG SPRAY NS PRN (16:11)
[2022-09-09] MEDS ORDERED: ACETAMINOPHEN 325 MG TABLET (FP) PO PRN (16:11)
[2022-09-09] MEDS ORDERED: hydrOXYzine PAMOATE 25 MG CAPSULE (FP) PO PRN (16:11)
[2022-09-09] MEDS ORDERED: AMMONIUM LACTATE 12% LOTION 225 GM BOTTLE TP PRN (16:11)
[2022-09-09] MEDS ORDERED: MAG HYDROX/AL HYDROX/SIMETH 30 ML UNIT-DOSE CUP PO PRN (16:11)
[2022-09-09] MEDS ORDERED: BENZOCAINE/MENTHOL (CHLORASEPTIC ) LOZENGE MM PRN (16:11)
[2022-09-09] MEDS ORDERED: methaDONE HCL 10 MG TABLET (FOR DETOX USE ONLY) PO ONE (16:11)
[2022-09-09] MEDS ORDERED: guaiFENesin 600 MG TABLET.ER (FP) PO PRN (16:11)
[2022-09-09] MEDS ORDERED: cloNIDine HCL 0.1 MG TABLET PO PRN (16:11)
[2022-09-09] MEDS ORDERED: BENZONATATE 200 MG CAPSULE PO PRN (16:11)
[2022-09-09] MEDS ORDERED: NALOXONE HCL 0.4 MG/ML VIAL IM PRN (16:11)
[2022-09-09] MEDS ORDERED: ONDANSETRON *ODT* 4 MG TABLET SL PRN (16:11)
[2022-09-09] MEDS ORDERED: COLLOIDAL OATMEAL 1 BAR EACH TP PRN (16:11)
[2022-09-09] MEDS ORDERED: LOPERAMIDE HCL 2 MG CAPSULE PO PRN (16:11)
[2022-09-09] MEDS ORDERED: NICOTINE 10 MG CARTRIDGE (INHALER) IH PRN (16:11)
[2022-09-09] MEDS ORDERED: methaDONE HCL 10 MG TABLET (FOR DETOX USE ONLY) ONE (16:44)
[2022-09-09] MEDS: MELATONIN 5 MG TABLETS PO SCH (22:24)
[2022-09-09] MEDS: THIAMINE HCL 100 MG TABLET (FP) PO SCH (22:24)
[2022-09-10] MEDS: ARIPiprazole 10 MG TABLET PO SCH (09:46)
[2022-09-10] MEDS: NICOTINE 14 MG/24 HOURS TOPICAL PATCH TD SCH (09:46)
[2022-09-10] MEDS: PRENATAL VITAMINS W/ FOLIC ACID TABLET (FP) PO SCH (09:46)
[2022-09-10] MEDS: SERTRALINE HCL 50 MG TABLET (FP) PO SCH (09:46)
[2022-09-10] MEDS: BISMUTH SUBSALICYLATE 524 MG/30 ML PO PRN (12:30)
[2022-09-10] MEDS ORDERED: diazePAM 5 MG TABLET PO ONE (14:00)
[2022-09-10 15:10] LABS: HEMATOCRIT 36.8 % (35.4-49); HEMOGLOBIN 12.1 GM/dL (11.7-16.9); MCH 24.1 pg (25.7-33.7); MCHC 32.9 g/dl (32.0-35.9); MEAN CELL VOLUME 73.3 fl (80-96); MEAN PLT VOLUME 9.5 fl (7.5-11.1); PLATELET COUNT 208 10^3/uL (134-434); RBC 5.02 M/mm3 (4.00-5.60); RDW 16.6 % (11.9-15.9); WHITE BLOOD COUNT 5.4 K/mm3 (4.0-10.0)
[2022-09-10 15:46] LABS: ALBUMIN 3.1 g/dl (3.4-5.0); BLOOD UREA NITROGEN 11.4 mg/dL (7-18); CALCIUM 8.8 mg/dL (8.5-10.1)
[2022-09-10 15:49] LABS: CREATININE 0.9 mg/dL (0.55-1.3)
[2022-09-10 15:50] LABS: BILIRUBIN,TOTAL 0.8 mg/dL (0.2-1); TOT PROT 6.3 g/dl (6.4-8.2)
[2022-09-10] MEDS: THIAMINE HCL 100 MG TABLET (FP) PO SCH (22:38)
[2022-09-10] MEDS: MELATONIN 5 MG TABLETS PO SCH (22:38)
[2022-09-11] MEDS ORDERED: methaDONE HCL 10 MG TABLET (FOR DETOX USE ONLY) PO ONE (10:00)
[2022-09-11] MEDS: NICOTINE 14 MG/24 HOURS TOPICAL PATCH TD SCH (10:19)
[2022-09-11] MEDS: PRENATAL VITAMINS W/ FOLIC ACID TABLET (FP) PO SCH (10:20)
[2022-09-11] MEDS: ARIPiprazole 10 MG TABLET PO SCH (10:20)
[2022-09-11] MEDS: SERTRALINE HCL 50 MG TABLET (FP) PO SCH (10:20)
[2022-09-11] MEDS: LACTULOSE 20 GM/30 ML UDC (FOR ORAL USE ONLY) PO SCH ×3 (13:34→21:03)
[2022-09-11] MEDS: THIAMINE HCL 100 MG TABLET (FP) PO SCH (21:03)
[2022-09-11] MEDS: MELATONIN 5 MG TABLETS PO SCH (21:03)
[2022-09-12] MEDS: BISMUTH SUBSALICYLATE 524 MG/30 ML PO PRN ×2 (02:35→17:21)
[2022-09-12] MEDS ORDERED: NICOTINE POLACRILEX 2 MG GUM BC PRN (09:24)
[2022-09-12] MEDS: SERTRALINE HCL 50 MG TABLET (FP) PO SCH (09:56)
[2022-09-12] MEDS: PRENATAL VITAMINS W/ FOLIC ACID TABLET (FP) PO SCH (09:56)
[2022-09-12] MEDS: ARIPiprazole 10 MG TABLET PO SCH (09:57)
[2022-09-12] MEDS: LACTULOSE 20 GM/30 ML UDC (FOR ORAL USE ONLY) PO SCH ×4 (10:02→23:12)
[2022-09-12] MEDS: NICOTINE 14 MG/24 HOURS TOPICAL PATCH TD SCH (10:02)
[2022-09-12] MEDS: diazePAM 5 MG TABLET PO PRN ×2 (11:05→17:20)
[2022-09-12] MEDS: THIAMINE HCL 100 MG TABLET (FP) PO SCH (23:12)
[2022-09-12] MEDS: MELATONIN 5 MG TABLETS PO SCH (23:12)
[2022-09-13] MEDS: BISMUTH SUBSALICYLATE 524 MG/30 ML PO PRN (07:37)
[2022-09-13] MEDS: levETIRAcetam 500 MG TABLET (FP) PO SCH ×2 (09:27→22:53)
[2022-09-13] MEDS: PRENATAL VITAMINS W/ FOLIC ACID TABLET (FP) PO SCH (09:27)
[2022-09-13] MEDS: ARIPiprazole 10 MG TABLET PO SCH (09:28)
[2022-09-13] MEDS: SERTRALINE HCL 50 MG TABLET (FP) PO SCH (09:28)
[2022-09-13] MEDS: LACTULOSE 20 GM/30 ML UDC (FOR ORAL USE ONLY) PO SCH (09:29)
[2022-09-13] MEDS: NICOTINE 14 MG/24 HOURS TOPICAL PATCH TD SCH (09:30)
[2022-09-13] MEDS ORDERED: methaDONE HCL 10 MG TABLET (FOR DETOX USE ONLY) PO ONE (10:00)
[2022-09-13] MEDS: diazePAM 5 MG TABLET PO PRN ×3 (10:22→22:53)
[2022-09-13] MEDS: MELATONIN 5 MG TABLETS PO SCH (22:53)
[2022-09-13] MEDS: THIAMINE HCL 100 MG TABLET (FP) PO SCH (22:53)
[2022-09-14] MEDS: diazePAM 5 MG TABLET PO PRN (05:44)
[2022-09-14 06:33] VITALS: BP 106/75; PULSE 72; RESP 16; TEMP 97.3
== END 2022-09-14 08:55 | disposition other institution (70) | DRG 773 ==
LOC: YASAS 12:58 → Y3N 16:50
PROVIDERS: ADMIT Allergy & Immunology; ATTEND Surgery
PROC: HZ2ZZZZ Detoxification Services for Substance Abuse Treatment (ICD-10-PCS; principal; 2022-09-09)
DX: F11.23 Opioid dependence with withdrawal (principal); F14.20 Cocaine dependence, uncomplicated; F15.20 Other stimulant dependence, uncomplicated; F17.210 Nicotine dependence, cigarettes, uncomplicated; F19.24 Other psychoactive substance dependence with psychoactive substance-induced mood disorder; F31.89 Other bipolar disorder; G40.909 Epilepsy, unspecified, not intractable, without status epilepticus; B18.2 Chronic viral hepatitis C; J45.909 Unspecified asthma, uncomplicated; R79.89 Other specified abnormal findings of blood chemistry; R00.1 Bradycardia, unspecified; Z86.19 Personal history of other infectious and parasitic diseases; W19.XXXA Unspecified fall, initial encounter; Y92.230 Patient room in hospital as the place of occurrence of the external cause; Z59.00 Homelessness unspecified
CPT/HCPCS: 36415; 80053; 82140; 82962; 85027; 86780; 93005; 93010; C9803-CS; U0003; U0005

== ENCOUNTER 2022-09-12 23:18 | Emergency (ER) | payer OTHER ==
[2022-09-12 23:35] VITALS: BP 129/78; PULSE 72; RESP 18; TEMP 98.1; BMI 26.0
[2022-09-13 00:48] LABS: BASO % 0.8 % (0-2.0); EOS % 1.2 % (0-4.5); HEMATOCRIT 39.3 % (35.4-49); HEMOGLOBIN 12.8 GM/dL (11.7-16.9); LYMPH % 32.8 % (8-40); MCH 23.8 pg (25.7-33.7); MCHC 32.5 g/dl (32.0-35.9); MEAN CELL VOLUME 73.2 fl (80-96); MEAN PLT VOLUME 8.4 fl (7.5-11.1); MONO % 6.2 % (3.8-10.2); PLATELET COUNT 239 10^3/uL (134-434); RBC 5.36 M/mm3 (4.00-5.60); RDW 17.1 % (11.9-15.9); WHITE BLOOD COUNT 7.6 K/mm3 (4.0-10.0)
[2022-09-13 01:01] LABS: INR 0.98 (0.83-1.09); PROTHROMBIN TIME (PATIENT) 11.4 SEC (9.7-13.0)
[2022-09-13 01:02] LABS: POTASSIUM 4.4 mmol/L (3.5-5.1)
[2022-09-13 01:04] LABS: ACTIVATED PTT 24.8 SECONDS (25.2-36.5)
[2022-09-13 01:06] LABS: ALBUMIN 3.2 g/dl (3.4-5.0); BLOOD UREA NITROGEN 19.4 mg/dL (7-18); CALCIUM 9.2 mg/dL (8.5-10.1)
[2022-09-13 01:10] LABS: CREATININE 0.8 mg/dL (0.55-1.3)
[2022-09-13 01:11] LABS: BILIRUBIN,TOTAL 0.2 mg/dL (0.2-1); TOT PROT 6.6 g/dl (6.4-8.2)
[2022-09-13] MEDS ORDERED: levETIRAcetam 500 MG TABLET (FP) PO ONE ×2 (02:24→02:31)
== END 2022-09-13 02:40 | disposition home or self-care (01) ==
LOC: JER 23:18
DX: G40.89 Other seizures (principal); Z20.822 Contact with and (suspected) exposure to COVID-19
CPT/HCPCS: 0241U-QW; 36415; 70450-TC; 80053; 82550; 82962; 83605; 83735; 84484; 85025; 85610; 85730; 93005; 93010; 99285-25